=== PATIENT | female | born 1955 | race African-American/Black ===

== ENCOUNTER 2020-04-11 13:39 | Inpatient (IN) ==
[2020-04-11] MEDS ORDERED: SODIUM CHLORIDE 0.9% 500 ML IV STA (15:19)
[2020-04-11] MEDS ORDERED: cefTRIAXone 1,000 MG in SODIUM CHLORIDE 0.9% 100 ML IV STA (15:19)
[2020-04-11 16:32] LABS: Alanine Aminotransferase 33 U/L (13-56); Albumin 2.5 G/DL (3.4-5.0); Alkaline Phosphatase 54 U/L (45-117); Aspartate Amino Transferase 102 U/L (0-37); Bilirubin,Total < 0.39 MG/DL (0.2-1.0); Blood Urea Nitrogen 62 MG/DL (7-18); Calcium 7.5 MG/DL (8.5-10.1); Estimated Glom Filtration Rate 3 ML/MIN; Ferritin 9669.4 ng/ml (8-252); Glucose 298 MG/DL (74-106); Osmolality,Calculated 296.2 MOS/KG (273-304); Total Protein 7.8 G/DL (6.4-8.3)
[2020-04-11 16:36] LABS: Basophils % 0.2 % (0.0-0.8); Hematocrit 32.8 VOL% (35.7-47.0); Hemoglobin 9.4 GM/DL (12.0-16.0); Immature Granulocytes % 0.6 %; Immature Granulocytes Absolute 0.05 #; Lymphocytes # 1.1 10*3/uL (1.4-4.0); Lymphocytes % 13.4 % (21.3-54.2); Mean Corpuscular HGB Conc 28.7 GM/DL (32-36); Mean Corpuscular Volume 75.6 FL (87-102); Monocytes % 6.7 % (1.7-12.7); NRBC # 0.02 10*3/uL; Neutrophils % 79.1 % (38.7-73.9); Platelet Count 113 T/CUMM (130-400); Red Blood Count 4.34 MC/CUMM (3.8-5.5); Red Cell Distribution Width 22.4 % (9.3-17.3); White Blood Count 8.4 T/CUMM (4-12)
[2020-04-11 16:53] LABS: Hypochromasia 1+; Microcytosis 1+; Platelet Estimate Adequate
[2020-04-11] MEDS ORDERED: ONDANSETRON 4 MG/2 ML VIAL IV PRN (17:13)
[2020-04-11] MEDS ORDERED: GLUCAGON 1 MG VIAL IM PRN (17:13)
[2020-04-11] MEDS ORDERED: NON-FORMULARY MEDICATION (Sucroferric Oxyhydroxide [Velphoro] 500 MG) PO SCH (21:00)
[2020-04-11] MEDS: INSULIN LISPRO 100 UNIT/ML SUBCUT SCH (21:15)
[2020-04-11] MEDS: ATORVASTATIN 10 MG TABLET PO SCH (21:16)
[2020-04-11] MEDS: MIRTAZAPINE 15 MG TABLET PO SCH (21:16)
[2020-04-11] MEDS: levETIRAcetam 500 MG TABLET PO SCH (21:16)
[2020-04-12] MEDS: cloNIDine 0.1 MG TABLET PO SCH ×3 (00:37→21:18)
[2020-04-12] MEDS: ACETAMINOPHEN 325 MG TABLET PO PRN ×3 (00:38→21:40)
[2020-04-12 05:53] LABS: Basophils % 0.4 % (0.0-0.8); Hematocrit 31.3 VOL% (35.7-47.0); Hemoglobin 9.2 GM/DL (12.0-16.0); Immature Granulocytes % 0.4 %; Immature Granulocytes Absolute 0.03 #; Lymphocytes # 1.1 10*3/uL (1.4-4.0); Lymphocytes % 15.9 % (21.3-54.2); Mean Corpuscular HGB Conc 29.4 GM/DL (32-36); Mean Corpuscular Volume 73.6 FL (87-102); Monocytes % 8.9 % (1.7-12.7); NRBC # 0.02 10*3/uL; Neutrophils % 74.4 % (38.7-73.9); Platelet Count 97 T/CUMM (130-400); Red Blood Count 4.25 MC/CUMM (3.8-5.5); Red Cell Distribution Width 22.3 % (9.3-17.3)
[2020-04-12 06:30] LABS: Calcium 7.2 MG/DL (8.5-10.1); Ferritin 7993.7 ng/ml (8-252); Osmolality,Calculated 288.2 MOS/KG (273-304)
[2020-04-12 06:34] LABS: Band Neutrophils 3 % (0-10); Lymphocytes 12 % (20-55); Myelocytes 1 %; Nucleated Red Blood Cells 3 (0-5); Platelet Estimate Decreased; Segmented Neutrophils 81 % (50-85); Total Cells Counted 100
[2020-04-12 06:35] LABS: Hypochromasia 2+; Ovalocytes Slight
[2020-04-12] MEDS: FLUoxetine 10 MG CAPSULE PO SCH (09:02)
[2020-04-12] MEDS: CYANOCOBALAMIN 500 MCG TABLET PO SCH (09:02)
[2020-04-12] MEDS: ASPIRIN EC 81 MG TABLET PO SCH (09:02)
[2020-04-12] MEDS: MULTIVITAMIN (CENTRUM) TABLET PO SCH (09:02)
[2020-04-12] MEDS: levETIRAcetam 500 MG TABLET PO SCH ×2 (09:02→21:18)
[2020-04-12] MEDS: ISOSORBIDE MONONITRATE 60 MG TABLET PO SCH (09:02)
[2020-04-12] MEDS: metOLazone 5 MG TABLET PO SCH (09:02)
[2020-04-12] MEDS: PANTOPRAZOLE 40 MG TABLET PO SCH (09:02)
[2020-04-12] MEDS: INSULIN LISPRO 100 UNIT/ML SUBCUT SCH ×4 (09:04→21:19)
[2020-04-12] MEDS: HEPARIN 5,000 UNIT/1 ML VIAL SUBCUT SCH ×2 (09:05→17:52)
[2020-04-12] MEDS: NICOTINE 21 MG/24 HR PATCH TRANSDERM SCH (09:06)
[2020-04-12] MEDS ORDERED: VANCOMYCIN INJ 1,000 MG in SODIUM CHLORIDE 0.9% 250 ML IV ONE (15:08)
[2020-04-12] MEDS: amLODIPine 10 MG TABLET PO SCH ×2 (17:51→18:40)
[2020-04-12] MEDS: ATORVASTATIN 10 MG TABLET PO SCH (21:19)
[2020-04-12] MEDS: MIRTAZAPINE 15 MG TABLET PO SCH (21:19)
[2020-04-12] MEDS: ACETAMINOPHEN 650 MG SUPP RECTAL PRN (22:45)
[2020-04-13] MEDS: HEPARIN 5,000 UNIT/1 ML VIAL SUBCUT SCH ×3 (01:02→16:29)
[2020-04-13 06:48] LABS: Basophils % 0.2 % (0.0-0.8); Hematocrit 34.1 VOL% (35.7-47.0); Hemoglobin 9.6 GM/DL (12.0-16.0); Immature Granulocytes % 0.5 %; Immature Granulocytes Absolute 0.05 #; Lymphocytes # 0.6 10*3/uL (1.4-4.0); Lymphocytes % 5.6 % (21.3-54.2); Mean Corpuscular HGB Conc 28.2 GM/DL (32-36); Mean Corpuscular Volume 74.8 FL (87-102); Monocytes % 10.9 % (1.7-12.7); NRBC # 0.02 10*3/uL; Neutrophils % 82.8 % (38.7-73.9); Platelet Count 126 T/CUMM (130-400); Red Blood Count 4.56 MC/CUMM (3.8-5.5); Red Cell Distribution Width 22.8 % (9.3-17.3); White Blood Count 9.8 T/CUMM (4-12)
[2020-04-13 06:52] LABS: Ferritin 13342.3 ng/ml (8-252); Osmolality,Calculated 290.5 MOS/KG (273-304)
[2020-04-13] MEDS: INSULIN LISPRO 100 UNIT/ML SUBCUT SCH ×4 (08:52→21:53)
[2020-04-13] MEDS: MULTIVITAMIN (CENTRUM) TABLET PO SCH ×2 (08:52→09:17)
[2020-04-13] MEDS: ASPIRIN EC 81 MG TABLET PO SCH ×2 (08:53→09:17)
[2020-04-13] MEDS: metOLazone 5 MG TABLET PO SCH ×2 (08:53→09:18)
[2020-04-13] MEDS: PANTOPRAZOLE 40 MG TABLET PO SCH ×2 (08:53→09:18)
[2020-04-13] MEDS: FLUoxetine 10 MG CAPSULE PO SCH ×2 (08:53→09:18)
[2020-04-13] MEDS: cloNIDine 0.1 MG TABLET PO SCH ×3 (08:53→21:51)
[2020-04-13] MEDS: CYANOCOBALAMIN 500 MCG TABLET PO SCH ×2 (08:53→09:18)
[2020-04-13] MEDS: levETIRAcetam 500 MG TABLET PO SCH ×3 (08:53→21:51)
[2020-04-13] MEDS: NICOTINE 21 MG/24 HR PATCH TRANSDERM SCH (08:53)
[2020-04-13] MEDS: ISOSORBIDE MONONITRATE 60 MG TABLET PO SCH ×2 (08:53→09:17)
[2020-04-13 09:53] LABS: Anisocytosis 2+; Hypochromasia 3+; Ovalocytes Few; Platelet Estimate Adequate; Poikilocytosis 1+; Schistocytes Slight
[2020-04-13 09:54] LABS: Target Cells Few
[2020-04-13] MEDS: amLODIPine 10 MG TABLET PO SCH (16:03)
[2020-04-13] MEDS: MIRTAZAPINE 15 MG TABLET PO SCH (21:51)
[2020-04-13] MEDS: ATORVASTATIN 10 MG TABLET PO SCH (21:51)
[2020-04-13] MEDS: DEXTROSE 10% 250 ML BAG IV PRN (22:22)
[2020-04-14] MEDS: HEPARIN 5,000 UNIT/1 ML VIAL SUBCUT SCH ×3 (03:31→16:35)
[2020-04-14 06:42] LABS: Basophils % 0.2 % (0.0-0.8); Hematocrit 35.1 VOL% (35.7-47.0); Immature Granulocytes % 0.6 %; Immature Granulocytes Absolute 0.06 #; Lymphocytes # 0.7 10*3/uL (1.4-4.0); Lymphocytes % 6.5 % (21.3-54.2); Mean Corpuscular HGB Conc 28.5 GM/DL (32-36); Mean Corpuscular Volume 73.4 FL (87-102); Monocytes % 10.2 % (1.7-12.7); NRBC # 0.04 10*3/uL; Neutrophils % 82.5 % (38.7-73.9); Platelet Count 185 T/CUMM (130-400); Red Blood Count 4.78 MC/CUMM (3.8-5.5); Red Cell Distribution Width 23.1 % (9.3-17.3); White Blood Count 10.1 T/CUMM (4-12)
[2020-04-14 06:48] LABS: Calcium 8.2 MG/DL (8.5-10.1); Osmolality,Calculated 291.5 MOS/KG (273-304)
[2020-04-14 06:55] LABS: Ferritin 10698.8 ng/ml (8-252)
[2020-04-14] MEDS: ACETAMINOPHEN 650 MG SUPP RECTAL PRN (08:23)
[2020-04-14] MEDS: NICOTINE 21 MG/24 HR PATCH TRANSDERM SCH (08:23)
[2020-04-14] MEDS: INSULIN LISPRO 100 UNIT/ML SUBCUT SCH ×4 (08:24→23:15)
[2020-04-14] MEDS: cloNIDine 0.1 MG TABLET PO SCH ×2 (08:24→21:48)
[2020-04-14] MEDS: ISOSORBIDE MONONITRATE 60 MG TABLET PO SCH (08:24)
[2020-04-14] MEDS: ASPIRIN EC 81 MG TABLET PO SCH (08:24)
[2020-04-14] MEDS: MULTIVITAMIN (CENTRUM) TABLET PO SCH (08:24)
[2020-04-14] MEDS: CYANOCOBALAMIN 500 MCG TABLET PO SCH (08:25)
[2020-04-14] MEDS: PANTOPRAZOLE 40 MG TABLET PO SCH (08:25)
[2020-04-14] MEDS: metOLazone 5 MG TABLET PO SCH (08:25)
[2020-04-14] MEDS: levETIRAcetam 500 MG TABLET PO SCH (08:25)
[2020-04-14] MEDS: FLUoxetine 10 MG CAPSULE PO SCH (08:25)
[2020-04-14 12:45] LABS: Anisocytosis 2+; Hypochromasia 2+; Microcytosis 2+
[2020-04-14 12:46] LABS: Ovalocytes Few; Schistocytes 1+
[2020-04-14 12:48] LABS: Platelet Estimate Adequate
[2020-04-14] MEDS: amLODIPine 10 MG TABLET PO SCH (16:16)
[2020-04-14] MEDS: ATORVASTATIN 10 MG TABLET PO SCH (21:47)
[2020-04-14] MEDS: MIRTAZAPINE 15 MG TABLET PO SCH (21:47)
[2020-04-15] MEDS: HEPARIN 5,000 UNIT/1 ML VIAL SUBCUT SCH ×3 (02:08→17:25)
[2020-04-15] MEDS: ACETAMINOPHEN 650 MG SUPP RECTAL PRN (03:40)
[2020-04-15 09:28] LABS: Basophils % 0.2 % (0.0-0.8); Hematocrit 31.4 VOL% (35.7-47.0); Hemoglobin 9.3 GM/DL (12.0-16.0); Lymphocytes % 9.3 % (21.3-54.2); Mean Corpuscular HGB Conc 29.6 GM/DL (32-36); Mean Corpuscular Volume 71.9 FL (87-102); Monocytes % 8.7 % (1.7-12.7); NRBC # 0.07 10*3/uL; Neutrophils % 80.8 % (38.7-73.9); Platelet Count 225 T/CUMM (130-400); Red Blood Count 4.37 MC/CUMM (3.8-5.5); Red Cell Distribution Width 23.5 % (9.3-17.3); White Blood Count 10.5 T/CUMM (4-12)
[2020-04-15] MEDS: INSULIN LISPRO 100 UNIT/ML SUBCUT SCH ×4 (09:32→21:49)
[2020-04-15 09:47] LABS: Calcium 8.3 MG/DL (8.5-10.1); Osmolality,Calculated 305.4 MOS/KG (273-304)
[2020-04-15] MEDS: ASPIRIN EC 81 MG TABLET PO SCH (09:51)
[2020-04-15] MEDS: MULTIVITAMIN (CENTRUM) TABLET PO SCH (09:51)
[2020-04-15] MEDS: cloNIDine 0.1 MG TABLET PO SCH ×2 (09:51→21:48)
[2020-04-15] MEDS: ISOSORBIDE MONONITRATE 60 MG TABLET PO SCH (09:52)
[2020-04-15] MEDS: FLUoxetine 10 MG CAPSULE PO SCH (09:52)
[2020-04-15] MEDS: PANTOPRAZOLE 40 MG TABLET PO SCH (09:52)
[2020-04-15] MEDS: metOLazone 5 MG TABLET PO SCH (09:53)
[2020-04-15] MEDS: CYANOCOBALAMIN 500 MCG TABLET PO SCH (09:53)
[2020-04-15 09:59] LABS: Band Neutrophils 1 % (0-10); Eosinophils 1 % (0-10); Hypochromasia 1+; Lymphocytes 8 % (20-55); Microcytosis 2+; Nucleated Red Blood Cells 3 (0-5); Segmented Neutrophils 82 % (50-85); Total Cells Counted 100
[2020-04-15 10:00] LABS: Acanthocytes Few; Ovalocytes Slight; Platelet Estimate Normal; Polychromasia Slight; Target Cells Slight
[2020-04-15] MEDS: NICOTINE 21 MG/24 HR PATCH TRANSDERM SCH (10:57)
[2020-04-15] MEDS ORDERED: SODIUM CHLORIDE 0.9% 1,000 ML IV ONE (15:19)
[2020-04-15 15:57] LABS: Osmolality,Calculated 296.5 MOS/KG (273-304)
[2020-04-15 16:38] LABS: ABG Base Excess -7.4 MMOL/L (-2.5-2.5); ABG HCO3 18.4 MMOL/L (20-26); ABG Oxygen Saturation 99.6 % (95-100); ABG PCO2 33.8 MM HG (35-48); ABG PH 7.329 (7.35-7.45); ABG TCO2 16.5 MMOL/L (23-27); Pt O2 Delivery Device Other
[2020-04-15] MEDS: amLODIPine 10 MG TABLET PO SCH (17:25)
[2020-04-15] MEDS ORDERED: PHENYTOIN INJ 1,000 MG in SODIUM CHLORIDE 0.9% 100 ML IV ONE (18:00)
[2020-04-15] MEDS: PHENYTOIN 100 MG/2 ML VIAL IV SCH (21:48)
[2020-04-15] MEDS: MIRTAZAPINE 15 MG TABLET PO SCH (21:50)
[2020-04-15] MEDS: ATORVASTATIN 10 MG TABLET PO SCH (21:50)
[2020-04-16] MEDS: HEPARIN 5,000 UNIT/1 ML VIAL SUBCUT SCH ×2 (00:27→08:33)
[2020-04-16] MEDS: PHENYTOIN 100 MG/2 ML VIAL IV SCH ×3 (06:48→21:21)
[2020-04-16] MEDS: NICOTINE 21 MG/24 HR PATCH TRANSDERM SCH (08:33)
[2020-04-16] MEDS: INSULIN LISPRO 100 UNIT/ML SUBCUT SCH ×3 (08:33→18:44)
[2020-04-16 09:14] LABS: Basophils % 0.2 % (0.0-0.8); Eosinophils # 0.1 10*3/uL (0.0-0.87); Eosinophils % 0.3 % (0.00-10.9); Hematocrit 28.4 VOL% (35.7-47.0); Hemoglobin 8.4 GM/DL (12.0-16.0); Immature Granulocytes % 2.7 %; Immature Granulocytes Absolute 0.48 #; Lymphocytes % 5.7 % (21.3-54.2); Mean Corpuscular HGB Conc 29.6 GM/DL (32-36); Mean Corpuscular Volume 71.5 FL (87-102); Monocytes % 7.3 % (1.7-12.7); NRBC # 0.12 10*3/uL; Neutrophils % 83.8 % (38.7-73.9); Platelet Count 255 T/CUMM (130-400); Red Blood Count 3.97 MC/CUMM (3.8-5.5); Red Cell Distribution Width 23.2 % (9.3-17.3); White Blood Count 17.8 T/CUMM (4-12)
[2020-04-16 09:40] LABS: Hypochromasia 1+
[2020-04-16 09:41] LABS: Anisocytosis 1+; Microcytosis 1+; Target Cells Few
[2020-04-16 09:42] LABS: Ovalocytes Slight; Platelet Estimate Normal; Polychromasia Slight; Tear Drop Cells Slight
[2020-04-16 09:48] LABS: Calcium 7.9 MG/DL (8.5-10.1); Osmolality,Calculated 308.1 MOS/KG (273-304)
[2020-04-16] MEDS: ISOSORBIDE MONONITRATE 60 MG TABLET PO SCH (10:15)
[2020-04-16] MEDS: ASPIRIN EC 81 MG TABLET PO SCH (10:15)
[2020-04-16] MEDS: cloNIDine 0.1 MG TABLET PO SCH ×2 (10:16→21:21)
[2020-04-16] MEDS: FLUoxetine 10 MG CAPSULE PO SCH (10:16)
[2020-04-16] MEDS: metOLazone 5 MG TABLET PO SCH (10:16)
[2020-04-16] MEDS: PANTOPRAZOLE 40 MG TABLET PO SCH (10:17)
[2020-04-16] MEDS: MULTIVITAMIN (CENTRUM) TABLET PO SCH (10:19)
[2020-04-16] MEDS: CYANOCOBALAMIN 500 MCG TABLET PO SCH (10:19)
[2020-04-16] MEDS ORDERED: ENOXAPARIN 100 MG/ML SYRINGE SUBCUT SCH (14:00)
[2020-04-16] MEDS: HEPARIN DRIP 25,000 UNITS/500 ML PREMIX IV SCH (17:32)
[2020-04-16] MEDS: amLODIPine 10 MG TABLET PO SCH (18:44)
[2020-04-16] MEDS: INSULIN GLARGINE 100 UNIT/ML SUBCUT SCH (21:20)
[2020-04-16] MEDS: MIRTAZAPINE 15 MG TABLET PO SCH (21:21)
[2020-04-16] MEDS: ATORVASTATIN 10 MG TABLET PO SCH (21:21)
[2020-04-17] MEDS: INSULIN LISPRO 100 UNIT/ML SUBCUT SCH ×4 (00:59→17:49)
[2020-04-17 04:10] LABS: ABG Base Excess -7.2 MMOL/L (-2.5-2.5); ABG HCO3 17.8 MMOL/L (20-26); ABG Oxygen Saturation 91.7 % (95-100); ABG PCO2 33.4 MM HG (35-48); ABG PH 7.344 (7.35-7.45); ABG PO2 74.5 MM HG (80-95); ABG TCO2 18.8 MMOL/L (23-27); Allen Test Positive
[2020-04-17] MEDS: PHENYTOIN 100 MG/2 ML VIAL IV SCH ×3 (05:00→21:30)
[2020-04-17 05:16] LABS: Basophils % 0.2 % (0.0-0.8); Eosinophils % 0.1 % (0.00-10.9); Hematocrit 25.4 VOL% (35.7-47.0); Hemoglobin 7.5 GM/DL (12.0-16.0); Immature Granulocytes % 4.4 %; Immature Granulocytes Absolute 0.78 #; Lymphocytes # 1.3 10*3/uL (1.4-4.0); Lymphocytes % 7.6 % (21.3-54.2); Mean Corpuscular HGB Conc 29.5 GM/DL (32-36); Mean Corpuscular Volume 72.4 FL (87-102); Monocytes % 6.9 % (1.7-12.7); NRBC # 0.27 10*3/uL; Neutrophils % 80.8 % (38.7-73.9); Platelet Count 287 T/CUMM (130-400); Red Blood Count 3.51 MC/CUMM (3.8-5.5); Red Cell Distribution Width 23.2 % (9.3-17.3); White Blood Count 17.6 T/CUMM (4-12)
[2020-04-17 05:38] LABS: Band Neutrophils 1 % (0-10); Eosinophils 1 % (0-10); Hypochromasia 2+; Lymphocytes 7 % (20-55); Nucleated Red Blood Cells 2 (0-5); Ovalocytes Slight; Platelet Estimate Adequate; Segmented Neutrophils 85 % (50-85); Total Cells Counted 100
[2020-04-17 05:39] LABS: Burr Cells Slight; Microcytosis 1+
[2020-04-17 05:49] LABS: Calcium 7.5 MG/DL (8.5-10.1)
[2020-04-17] MEDS: MULTIVITAMIN (CENTRUM) TABLET PO SCH (08:35)
[2020-04-17] MEDS: CYANOCOBALAMIN 500 MCG TABLET PO SCH (08:35)
[2020-04-17] MEDS: ISOSORBIDE MONONITRATE 60 MG TABLET PO SCH (08:35)
[2020-04-17] MEDS: metOLazone 5 MG TABLET PO SCH (08:35)
[2020-04-17] MEDS: FLUoxetine 10 MG CAPSULE PO SCH (08:35)
[2020-04-17] MEDS: ASPIRIN EC 81 MG TABLET PO SCH (08:35)
[2020-04-17] MEDS: cloNIDine 0.1 MG TABLET PO SCH ×2 (08:56→21:30)
[2020-04-17] MEDS: NICOTINE 21 MG/24 HR PATCH TRANSDERM SCH (08:56)
[2020-04-17] MEDS: PANTOPRAZOLE 40 MG VIAL IV SCH (09:15)
[2020-04-17] MEDS ORDERED: AZITHROMYCIN 250 MG TABLET PER TUBE ONE (11:30)
[2020-04-17] MEDS: cefTRIAXone 1,000 MG in SYRINGE 1 EACH IV SCH (11:47)
[2020-04-17] MEDS: MIRTAZAPINE 15 MG TABLET PO SCH (21:30)
[2020-04-17] MEDS: ATORVASTATIN 10 MG TABLET PO SCH (21:30)
[2020-04-17] MEDS: INSULIN GLARGINE 100 UNIT/ML SUBCUT SCH (23:27)
[2020-04-17] MEDS: HEPARIN DRIP 25,000 UNITS/500 ML PREMIX IV SCH (23:34)
[2020-04-18] MEDS: INSULIN LISPRO 100 UNIT/ML SUBCUT SCH ×4 (00:30→17:09)
[2020-04-18] MEDS: ACETAMINOPHEN 325 MG TABLET PO PRN (03:40)
[2020-04-18] MEDS: PHENYTOIN 100 MG/2 ML VIAL IV SCH ×3 (03:40→20:37)
[2020-04-18 05:49] LABS: Calcium 7.5 MG/DL (8.5-10.1); Osmolality,Calculated 298.1 MOS/KG (273-304)
[2020-04-18] MEDS ORDERED: HEPARIN 5,000 UNIT/1 ML VIAL IV ONE (06:05)
[2020-04-18] MEDS: AZITHROMYCIN 250 MG TABLET PER TUBE SCH (09:28)
[2020-04-18] MEDS: ISOSORBIDE MONONITRATE 60 MG TABLET PO SCH (09:28)
[2020-04-18] MEDS: FLUoxetine 10 MG CAPSULE PO SCH (09:28)
[2020-04-18] MEDS: CYANOCOBALAMIN 500 MCG TABLET PO SCH (09:28)
[2020-04-18] MEDS: cloNIDine 0.1 MG TABLET PO SCH ×2 (09:29→20:41)
[2020-04-18] MEDS: metOLazone 5 MG TABLET PO SCH (09:29)
[2020-04-18] MEDS: ASPIRIN EC 81 MG TABLET PO SCH (09:29)
[2020-04-18] MEDS: NICOTINE 21 MG/24 HR PATCH TRANSDERM SCH (09:29)
[2020-04-18] MEDS: PANTOPRAZOLE 40 MG VIAL IV SCH (09:29)
[2020-04-18] MEDS: cefTRIAXone 1,000 MG in SYRINGE 1 EACH IV SCH (11:19)
[2020-04-18] MEDS: MULTIVITAMIN (CENTRUM) TABLET PO SCH (12:36)
[2020-04-18] MEDS: ATORVASTATIN 10 MG TABLET PO SCH (20:41)
[2020-04-18] MEDS: MIRTAZAPINE 15 MG TABLET PO SCH (20:41)
[2020-04-18] MEDS: INSULIN GLARGINE 100 UNIT/ML SUBCUT SCH (21:29)
[2020-04-19] MEDS: INSULIN LISPRO 100 UNIT/ML SUBCUT SCH ×4 (00:53→18:08)
[2020-04-19 02:09] LABS: Basophils # 0.1 10*3/uL (0.0-0.2); Basophils % 0.4 % (0.0-0.8); Eosinophils # 0.1 10*3/uL (0.0-0.87); Eosinophils % 0.5 % (0.00-10.9); Hematocrit 23.6 VOL% (35.7-47.0); Hemoglobin 6.8 GM/DL (12.0-16.0); Immature Granulocytes % 6.3 %; Immature Granulocytes Absolute 0.82 #; Lymphocytes # 1.2 10*3/uL (1.4-4.0); Mean Corpuscular HGB Conc 28.8 GM/DL (32-36); Mean Corpuscular Volume 73.8 FL (87-102); Mean Platelet Volume 10.4 FL (9.6-12.0); Monocytes % 8.6 % (1.7-12.7); NRBC # 0.29 10*3/uL; Neutrophils % 75.2 % (38.7-73.9); Platelet Count 315 T/CUMM (130-400); Red Cell Distribution Width 23.5 % (9.3-17.3); White Blood Count 12.9 T/CUMM (4-12)
[2020-04-19 02:25] LABS: Calcium 7.6 MG/DL (8.5-10.1); Osmolality,Calculated 297.5 MOS/KG (273-304)
[2020-04-19 04:25] LABS: Hypochromasia 2+; Lymphocytes 9 % (20-55); Platelet Estimate Adequate; Polychromasia Slight; Segmented Neutrophils 86 % (50-85); Total Cells Counted 100
[2020-04-19 04:26] LABS: Macrocytosis Slight
[2020-04-19] MEDS: PHENYTOIN 100 MG/2 ML VIAL IV SCH ×3 (05:39→21:02)
[2020-04-19] MEDS: HEPARIN DRIP 25,000 UNITS/500 ML PREMIX IV SCH (06:57)
[2020-04-19] MEDS: AZITHROMYCIN 250 MG TABLET PER TUBE SCH (08:41)
[2020-04-19] MEDS: CYANOCOBALAMIN 500 MCG TABLET PO SCH (08:41)
[2020-04-19] MEDS: FLUoxetine 10 MG CAPSULE PO SCH (08:41)
[2020-04-19] MEDS: ASPIRIN EC 81 MG TABLET PO SCH (08:41)
[2020-04-19] MEDS: metOLazone 5 MG TABLET PO SCH (08:41)
[2020-04-19] MEDS: NICOTINE 21 MG/24 HR PATCH TRANSDERM SCH (08:42)
[2020-04-19] MEDS: cefTRIAXone 1,000 MG in SYRINGE 1 EACH IV SCH (08:42)
[2020-04-19] MEDS: cloNIDine 0.1 MG TABLET PO SCH ×2 (08:42→21:03)
[2020-04-19] MEDS: PANTOPRAZOLE 40 MG VIAL IV SCH (08:42)
[2020-04-19] MEDS: ISOSORBIDE MONONITRATE 60 MG TABLET PO SCH (08:42)
[2020-04-19] MEDS ORDERED: SODIUM CHLORIDE 0.9% 1,000 ML IV PRN ×2 (13:48→14:19)
[2020-04-19] MEDS: HEPARIN 5,000 UNIT/1 ML VIAL SUBCUT SCH (16:39)
[2020-04-19] MEDS: ACETAMINOPHEN 325 MG TABLET PO PRN (20:59)
[2020-04-19] MEDS: INSULIN GLARGINE 100 UNIT/ML SUBCUT SCH (21:02)
[2020-04-19] MEDS: MIRTAZAPINE 15 MG TABLET PO SCH (21:02)
[2020-04-19] MEDS: ATORVASTATIN 10 MG TABLET PO SCH (21:02)
[2020-04-20] MEDS: INSULIN LISPRO 100 UNIT/ML SUBCUT SCH ×4 (01:09→18:26)
[2020-04-20] MEDS: HEPARIN 5,000 UNIT/1 ML VIAL SUBCUT SCH ×3 (01:11→16:10)
[2020-04-20] MEDS: PHENYTOIN 100 MG/2 ML VIAL IV SCH ×3 (05:11→21:10)
[2020-04-20 06:08] LABS: Basophils # 0.1 10*3/uL (0.0-0.2); Basophils % 0.5 % (0.0-0.8); Eosinophils # 0.1 10*3/uL (0.0-0.87); Eosinophils % 0.8 % (0.00-10.9); Hematocrit 29.5 VOL% (35.7-47.0); Hemoglobin 8.6 GM/DL (12.0-16.0); Immature Granulocytes % 6.4 %; Immature Granulocytes Absolute 0.86 #; Mean Corpuscular HGB Conc 29.2 GM/DL (32-36); Mean Corpuscular Volume 77.4 FL (87-102); Mean Platelet Volume 10.4 FL (9.6-12.0); Monocytes % 11.3 % (1.7-12.7); NRBC # 0.12 10*3/uL; Platelet Count 279 T/CUMM (130-400); Red Blood Count 3.81 MC/CUMM (3.8-5.5); Red Cell Distribution Width 24.5 % (9.3-17.3); White Blood Count 13.5 T/CUMM (4-12)
[2020-04-20 07:50] LABS: Lymphocytes 7 % (20-55); Myelocytes 1 %; Nucleated Red Blood Cells 2 (0-5); Total Cells Counted 100
[2020-04-20 07:51] LABS: Acanthocytes Few; Anisocytosis 2+; Band Neutrophils 3 % (0-10); Eosinophils 1 % (0-10); Hypochromasia 2+; Macrocytosis 2+; Metamyelocytes 3 %; Ovalocytes 1+; Platelet Estimate Normal; Segmented Neutrophils 78 % (50-85); Target Cells 2+
[2020-04-20] MEDS: NICOTINE 21 MG/24 HR PATCH TRANSDERM SCH (08:22)
[2020-04-20] MEDS: CYANOCOBALAMIN 500 MCG TABLET PO SCH (08:22)
[2020-04-20] MEDS: metOLazone 5 MG TABLET PO SCH (08:23)
[2020-04-20] MEDS: FLUoxetine 10 MG CAPSULE PO SCH (08:23)
[2020-04-20] MEDS: cefTRIAXone 1,000 MG in SYRINGE 1 EACH IV SCH (08:23)
[2020-04-20] MEDS: cloNIDine 0.1 MG TABLET PO SCH ×2 (08:23→21:14)
[2020-04-20] MEDS: ISOSORBIDE MONONITRATE 60 MG TABLET PO SCH (08:23)
[2020-04-20] MEDS: ASPIRIN EC 81 MG TABLET PO SCH (08:23)
[2020-04-20] MEDS: PANTOPRAZOLE 40 MG VIAL IV SCH (08:26)
[2020-04-20] MEDS: AZITHROMYCIN 250 MG TABLET PER TUBE SCH (08:27)
[2020-04-20] MEDS: ATORVASTATIN 10 MG TABLET PO SCH (21:14)
[2020-04-20] MEDS: MIRTAZAPINE 15 MG TABLET PO SCH (21:15)
[2020-04-20] MEDS: INSULIN GLARGINE 100 UNIT/ML SUBCUT SCH (21:16)
[2020-04-21] MEDS: INSULIN LISPRO 100 UNIT/ML SUBCUT SCH ×4 (01:12→18:27)
[2020-04-21] MEDS: HEPARIN 5,000 UNIT/1 ML VIAL SUBCUT SCH ×3 (01:13→16:56)
[2020-04-21] MEDS: PHENYTOIN 100 MG/2 ML VIAL IV SCH ×4 (04:49→21:46)
[2020-04-21] MEDS: PANTOPRAZOLE 40 MG VIAL IV SCH (08:35)
[2020-04-21] MEDS: cefTRIAXone 1,000 MG in SYRINGE 1 EACH IV SCH (08:35)
[2020-04-21] MEDS: FLUoxetine 10 MG CAPSULE PO SCH (08:36)
[2020-04-21] MEDS: cloNIDine 0.1 MG TABLET PO SCH ×2 (08:36→21:46)
[2020-04-21] MEDS: CYANOCOBALAMIN 500 MCG TABLET PO SCH (08:36)
[2020-04-21] MEDS: metOLazone 5 MG TABLET PO SCH (08:36)
[2020-04-21] MEDS: ISOSORBIDE MONONITRATE 60 MG TABLET PO SCH (08:36)
[2020-04-21] MEDS: AZITHROMYCIN 250 MG TABLET PER TUBE SCH (08:37)
[2020-04-21] MEDS: NICOTINE 21 MG/24 HR PATCH TRANSDERM SCH (08:37)
[2020-04-21] MEDS: ASPIRIN EC 81 MG TABLET PO SCH (08:37)
[2020-04-21] MEDS: ATORVASTATIN 10 MG TABLET PO SCH (21:46)
[2020-04-21] MEDS: MIRTAZAPINE 15 MG TABLET PO SCH (21:56)
[2020-04-21] MEDS: INSULIN GLARGINE 100 UNIT/ML SUBCUT SCH (22:00)
[2020-04-22] MEDS: HEPARIN 5,000 UNIT/1 ML VIAL SUBCUT SCH ×3 (01:03→16:52)
[2020-04-22] MEDS: INSULIN LISPRO 100 UNIT/ML SUBCUT SCH ×5 (01:03→18:42)
[2020-04-22] MEDS: PHENYTOIN 100 MG/2 ML VIAL IV SCH ×3 (06:00→21:48)
[2020-04-22 07:44] LABS: Calcium 8.2 MG/DL (8.5-10.1); Osmolality,Calculated 303.7 MOS/KG (273-304); Prealbumin 11.5 MG/DL (20-40)
[2020-04-22] MEDS: cefTRIAXone 1,000 MG in SYRINGE 1 EACH IV SCH (09:14)
[2020-04-22] MEDS: ISOSORBIDE MONONITRATE 60 MG TABLET PO SCH (09:17)
[2020-04-22] MEDS: ASPIRIN EC 81 MG TABLET PO SCH (09:17)
[2020-04-22] MEDS: cloNIDine 0.1 MG TABLET PO SCH ×2 (09:17→21:45)
[2020-04-22] MEDS: CYANOCOBALAMIN 500 MCG TABLET PO SCH (09:17)
[2020-04-22] MEDS: FLUoxetine 10 MG CAPSULE PO SCH (09:17)
[2020-04-22] MEDS: PANTOPRAZOLE 40 MG VIAL IV SCH (09:17)
[2020-04-22] MEDS: metOLazone 5 MG TABLET PO SCH (09:17)
[2020-04-22] MEDS: NICOTINE 21 MG/24 HR PATCH TRANSDERM SCH (09:18)
[2020-04-22] MEDS: ATORVASTATIN 10 MG TABLET PO SCH (21:45)
[2020-04-22] MEDS: MIRTAZAPINE 15 MG TABLET PO SCH (21:45)
[2020-04-22] MEDS: INSULIN GLARGINE 100 UNIT/ML SUBCUT SCH (21:47)
[2020-04-23] MEDS: ACETAMINOPHEN 325 MG TABLET PO PRN (00:07)
[2020-04-23] MEDS: HEPARIN 5,000 UNIT/1 ML VIAL SUBCUT SCH ×3 (01:00→17:21)
[2020-04-23] MEDS: INSULIN LISPRO 100 UNIT/ML SUBCUT SCH ×4 (01:00→17:21)
[2020-04-23] MEDS: PHENYTOIN 100 MG/2 ML VIAL IV SCH ×3 (05:48→22:00)
[2020-04-23] MEDS: PANTOPRAZOLE 40 MG VIAL IV SCH (08:49)
[2020-04-23] MEDS: cloNIDine 0.1 MG TABLET PO SCH ×2 (08:50→21:58)
[2020-04-23] MEDS: FLUoxetine 10 MG CAPSULE PO SCH (08:50)
[2020-04-23] MEDS: ISOSORBIDE MONONITRATE 60 MG TABLET PO SCH (08:50)
[2020-04-23] MEDS: cefTRIAXone 1,000 MG in SYRINGE 1 EACH IV SCH (08:50)
[2020-04-23] MEDS: ASPIRIN EC 81 MG TABLET PO SCH (08:51)
[2020-04-23] MEDS: CYANOCOBALAMIN 500 MCG TABLET PO SCH (08:51)
[2020-04-23] MEDS: metOLazone 5 MG TABLET PO SCH (08:51)
[2020-04-23] MEDS: NICOTINE 21 MG/24 HR PATCH TRANSDERM SCH (08:51)
[2020-04-23] MEDS: ATORVASTATIN 10 MG TABLET PO SCH (21:58)
[2020-04-23] MEDS: MIRTAZAPINE 15 MG TABLET PO SCH (21:58)
[2020-04-23] MEDS: INSULIN GLARGINE 100 UNIT/ML SUBCUT SCH (21:59)
[2020-04-24] MEDS: INSULIN LISPRO 100 UNIT/ML SUBCUT SCH ×4 (01:26→17:12)
[2020-04-24] MEDS: HEPARIN 5,000 UNIT/1 ML VIAL SUBCUT SCH ×3 (01:32→17:14)
[2020-04-24] MEDS: PHENYTOIN 100 MG/2 ML VIAL IV SCH ×3 (05:37→20:36)
[2020-04-24] MEDS: CYANOCOBALAMIN 500 MCG TABLET PO SCH (09:00)
[2020-04-24] MEDS: ASPIRIN EC 81 MG TABLET PO SCH (09:00)
[2020-04-24] MEDS: FLUoxetine 10 MG CAPSULE PO SCH (09:00)
[2020-04-24] MEDS: PANTOPRAZOLE 40 MG VIAL IV SCH (09:02)
[2020-04-24] MEDS: metOLazone 5 MG TABLET PO SCH (09:02)
[2020-04-24] MEDS: cefTRIAXone 1,000 MG in SYRINGE 1 EACH IV SCH (09:02)
[2020-04-24] MEDS: NICOTINE 21 MG/24 HR PATCH TRANSDERM SCH (09:03)
[2020-04-24 10:14] LABS: Basophils # 0.2 10*3/uL (0.0-0.2); Basophils % 0.9 % (0.0-0.8); Eosinophils # 0.2 10*3/uL (0.0-0.87); Hematocrit 29.7 VOL% (35.7-47.0); Hemoglobin 8.6 GM/DL (12.0-16.0); Immature Granulocytes % 7.2 %; Immature Granulocytes Absolute 1.23 #; Lymphocytes # 2.1 10*3/uL (1.4-4.0); Lymphocytes % 12.2 % (21.3-54.2); Mean Corpuscular Volume 78.2 FL (87-102); Mean Platelet Volume 10.2 FL (9.6-12.0); Monocytes % 3.9 % (1.7-12.7); NRBC # 0.05 10*3/uL; Neutrophils % 74.8 % (38.7-73.9); Platelet Count 358 T/CUMM (130-400); Red Cell Distribution Width 24.8 % (9.3-17.3); White Blood Count 17.1 T/CUMM (4-12)
[2020-04-24 10:35] LABS: Band Neutrophils 6 % (0-10); Lymphocytes 8 % (20-55); Segmented Neutrophils 83 % (50-85); Total Cells Counted 100
[2020-04-24 10:36] LABS: Hypochromasia 1+; Microcytosis 1+
[2020-04-24 10:37] LABS: Anisocytosis 1+; Polychromasia Slight
[2020-04-24 10:48] LABS: Calcium 8.8 MG/DL (8.5-10.1); Osmolality,Calculated 286.8 MOS/KG (273-304)
[2020-04-24] MEDS: cloNIDine 0.1 MG TABLET PO SCH ×2 (10:48→20:36)
[2020-04-24] MEDS: ISOSORBIDE MONONITRATE 60 MG TABLET PO SCH (10:49)
[2020-04-24] MEDS: ACETAMINOPHEN 325 MG TABLET PO PRN ×2 (16:57→20:37)
[2020-04-24] MEDS: INSULIN GLARGINE 100 UNIT/ML SUBCUT SCH (20:35)
[2020-04-24] MEDS: MIRTAZAPINE 15 MG TABLET PO SCH (20:36)
[2020-04-24] MEDS: ATORVASTATIN 10 MG TABLET PO SCH (20:37)
[2020-04-25] MEDS: HEPARIN 5,000 UNIT/1 ML VIAL SUBCUT SCH ×3 (00:01→16:36)
[2020-04-25] MEDS: INSULIN LISPRO 100 UNIT/ML SUBCUT SCH ×4 (00:01→17:49)
[2020-04-25 04:39] LABS: Calcium 8.5 MG/DL (8.5-10.1)
[2020-04-25] MEDS: PHENYTOIN 100 MG/2 ML VIAL IV SCH ×3 (05:37→20:31)
[2020-04-25] MEDS: ASPIRIN EC 81 MG TABLET PO SCH (09:13)
[2020-04-25] MEDS: ISOSORBIDE MONONITRATE 60 MG TABLET PO SCH (09:13)
[2020-04-25] MEDS: cloNIDine 0.1 MG TABLET PO SCH ×2 (09:13→20:31)
[2020-04-25] MEDS: CYANOCOBALAMIN 500 MCG TABLET PO SCH (09:15)
[2020-04-25] MEDS: PANTOPRAZOLE 40 MG VIAL IV SCH (09:16)
[2020-04-25] MEDS: FLUoxetine 10 MG CAPSULE PO SCH (09:17)
[2020-04-25] MEDS: NICOTINE 21 MG/24 HR PATCH TRANSDERM SCH (09:19)
[2020-04-25] MEDS: metOLazone 5 MG TABLET PO SCH (09:29)
[2020-04-25 10:09] LABS: Basophils # 0.2 10*3/uL (0.0-0.2); Basophils % 0.8 % (0.0-0.8); Eosinophils # 0.2 10*3/uL (0.0-0.87); Eosinophils % 0.8 % (0.00-10.9); Hematocrit 27.5 VOL% (35.7-47.0); Hemoglobin 7.9 GM/DL (12.0-16.0); Immature Granulocytes % 5.1 %; Immature Granulocytes Absolute 1.14 #; Lymphocytes # 1.7 10*3/uL (1.4-4.0); Lymphocytes % 7.4 % (21.3-54.2); Mean Corpuscular HGB Conc 28.7 GM/DL (32-36); Mean Platelet Volume 10.9 FL (9.6-12.0); Monocytes % 8.7 % (1.7-12.7); NRBC # 0.16 10*3/uL; Neutrophils % 77.2 % (38.7-73.9); Platelet Count 385 T/CUMM (130-400); Red Blood Count 3.48 MC/CUMM (3.8-5.5); Red Cell Distribution Width 24.8 % (9.3-17.3); White Blood Count 22.6 T/CUMM (4-12)
[2020-04-25 10:29] LABS: Hypochromasia 2+; Lymphocytes 8 % (20-55); Metamyelocytes 1 %; Microcytosis 1+; Nucleated Red Blood Cells 1 (0-5); Segmented Neutrophils 80 % (50-85); Total Cells Counted 100
[2020-04-25 10:30] LABS: Anisocytosis 1+; Ovalocytes Slight; Platelet Estimate Normal; Polychromasia Slight
[2020-04-25] MEDS ORDERED: POTASSIUM CHLORIDE 20 MEQ TABLET PO ONE (12:00)
[2020-04-25] MEDS: PIPERACILLIN/TAZOBACTAM 3,375 MG in SODIUM CHLORIDE 0.9% 100 ML IV SCH ×2 (12:07→23:39)
[2020-04-25] MEDS: INSULIN GLARGINE 100 UNIT/ML SUBCUT SCH (20:31)
[2020-04-25] MEDS: ATORVASTATIN 10 MG TABLET PO SCH (20:32)
[2020-04-25] MEDS: ACETAMINOPHEN 325 MG TABLET PO PRN (20:32)
[2020-04-25] MEDS: MIRTAZAPINE 15 MG TABLET PO SCH (20:32)
[2020-04-26] MEDS: HEPARIN 5,000 UNIT/1 ML VIAL SUBCUT SCH ×3 (00:01→16:11)
[2020-04-26] MEDS: INSULIN LISPRO 100 UNIT/ML SUBCUT SCH ×3 (00:56→11:18)
[2020-04-26] MEDS: PHENYTOIN 100 MG/2 ML VIAL IV SCH ×3 (04:09→22:05)
[2020-04-26 05:08] LABS: Basophils # 0.2 10*3/uL (0.0-0.2); Basophils % 0.8 % (0.0-0.8); Eosinophils # 0.2 10*3/uL (0.0-0.87); Eosinophils % 1.1 % (0.00-10.9); Hematocrit 26.8 VOL% (35.7-47.0); Hemoglobin 7.8 GM/DL (12.0-16.0); Immature Granulocytes % 4.6 %; Immature Granulocytes Absolute 0.88 #; Lymphocytes # 1.6 10*3/uL (1.4-4.0); Lymphocytes % 8.1 % (21.3-54.2); Mean Corpuscular HGB Conc 29.1 GM/DL (32-36); Mean Corpuscular Volume 77.9 FL (87-102); Mean Platelet Volume 10.9 FL (9.6-12.0); Monocytes % 8.2 % (1.7-12.7); NRBC # 0.18 10*3/uL; Neutrophils % 77.2 % (38.7-73.9); Platelet Count 413 T/CUMM (130-400); Red Blood Count 3.44 MC/CUMM (3.8-5.5); White Blood Count 19.1 T/CUMM (4-12)
[2020-04-26 08:17] LABS: Band Neutrophils 1 % (0-10); Eosinophils 1 % (0-10); Lymphocytes 16 % (20-55); Metamyelocytes 1 %; Segmented Neutrophils 73 % (50-85); Total Cells Counted 100
[2020-04-26 08:18] LABS: Hypochromasia 2+; Platelet Estimate Increased
[2020-04-26 08:19] LABS: Anisocytosis 1+; Ovalocytes 2+; Target Cells 2+
[2020-04-26 08:20] LABS: Macrocytosis 1+
[2020-04-26] MEDS: NICOTINE 21 MG/24 HR PATCH TRANSDERM SCH (08:21)
[2020-04-26] MEDS: CYANOCOBALAMIN 500 MCG TABLET PO SCH (08:23)
[2020-04-26] MEDS: PANTOPRAZOLE 40 MG VIAL IV SCH (08:23)
[2020-04-26] MEDS: cloNIDine 0.1 MG TABLET PO SCH (08:23)
[2020-04-26] MEDS: metOLazone 5 MG TABLET PO SCH (08:23)
[2020-04-26] MEDS: ASPIRIN EC 81 MG TABLET PO SCH (08:23)
[2020-04-26] MEDS: ISOSORBIDE MONONITRATE 60 MG TABLET PO SCH (08:23)
[2020-04-26] MEDS: FLUoxetine 10 MG CAPSULE PO SCH (08:23)
[2020-04-26] MEDS: PIPERACILLIN/TAZOBACTAM 3,375 MG in SODIUM CHLORIDE 0.9% 100 ML IV SCH ×2 (09:08→22:31)
[2020-04-26] MEDS ORDERED: NOREPINEPHRINE 4 MG/4 ML VIAL IV ONE (12:15)
[2020-04-26] MEDS: NOREPINEPHRINE 8 MG in SODIUM CHLORIDE 0.9% 242 ML IV PRN ×2 (12:20→16:14)
[2020-04-26 12:33] LABS: Allen Test Positive; Pt O2 Delivery Device Ventilator
[2020-04-26 12:34] LABS: ABG HCO3 10.7 MMOL/L (20-26); ABG Oxygen Saturation 99.3 % (95-100); ABG PCO2 41.7 MM HG (35-48); ABG TCO2 11.4 MMOL/L (23-27)
[2020-04-26 12:37] LABS: ABG PH 7.045 (7.35-7.45)
[2020-04-26] MEDS ORDERED: SODIUM BICARBONATE 50 MEQ/50 ML VIAL IV ONE ×4 (12:46→20:33)
[2020-04-26 13:07] LABS: Alanine Aminotransferase 570 U/L (13-56); Albumin 1.4 G/DL (3.4-5.0); Alkaline Phosphatase 150 U/L (45-117); Aspartate Amino Transferase 1393 U/L (0-37); Bilirubin,Total < 0.39 MG/DL (0.2-1.0); Blood Urea Nitrogen 58 MG/DL (7-18); Calcium 9.6 MG/DL (8.5-10.1); Estimated Glom Filtration Rate 6 ML/MIN; Glucose 139 MG/DL (74-106); Osmolality,Calculated 300.1 MOS/KG (273-304); Total Protein 6.5 G/DL (6.4-8.3)
[2020-04-26] MEDS ORDERED: MIDAZOLAM 2 MG/2 ML VIAL IV ONE (13:20)
[2020-04-26] MEDS ORDERED: MIDAZOLAM 2 MG/2 ML VIAL ONE (13:21)
[2020-04-26] MEDS ORDERED: fentaNYL INJ 1,250 MCG in SODIUM CHLORIDE 0.9% 225 ML IV PRN (13:30)
[2020-04-26 13:54] LABS: Basophils # 0.1 10*3/uL (0.0-0.2); Basophils % 0.3 % (0.0-0.8); Hemoglobin 8.7 GM/DL (12.0-16.0); Mean Corpuscular HGB Conc 27.4 GM/DL (32-36); NRBC # 0.81 10*3/uL
[2020-04-26 14:14] LABS: Hematocrit 31.7 VOL% (35.7-47.0); Immature Granulocytes % 9.6 %; Immature Granulocytes Absolute 4.54 #; Lymphocytes # 2.4 10*3/uL (1.4-4.0); Mean Corpuscular Volume 84.5 FL (87-102); Mean Platelet Volume 9.7 FL (9.6-12.0); Monocytes % 3.4 % (1.7-12.7); Neutrophils % 81.7 % (38.7-73.9); Platelet Count 347 T/CUMM (130-400); Red Blood Count 3.75 MC/CUMM (3.8-5.5); Red Cell Distribution Width 25.9 % (9.3-17.3)
[2020-04-26 14:19] LABS: White Blood Count 47.1 T/CUMM (4-12)
[2020-04-26] MEDS: SODIUM BICARB INJ 150 MEQ in DEXTROSE 5% 850 ML IV SCH ×2 (14:24→22:00)
[2020-04-26] MEDS ORDERED: ROCURONIUM 100 MG/10 ML VIAL IV ONE ×2 (14:35→16:33)
[2020-04-26 14:43] LABS: Band Neutrophils 8 % (0-10); Lymphocytes 7 % (20-55); Metamyelocytes 2 %; Myelocytes 2 %; Nucleated Red Blood Cells 2 (0-5); Segmented Neutrophils 76 % (50-85); Total Cells Counted 100
[2020-04-26 14:44] LABS: Anisocytosis 2+; Hypochromasia 3+; Polychromasia 1+
[2020-04-26 14:45] LABS: Burr Cells Few; Microcytosis 2+; Ovalocytes Few
[2020-04-26 14:46] LABS: Platelet Estimate Increased
[2020-04-26 14:57] LABS: ABG Base Excess -19.6 MMOL/L (-2.5-2.5); ABG HCO3 9.8 MMOL/L (20-26); ABG Oxygen Saturation 98.4 % (95-100); ABG PCO2 21.8 MM HG (35-48); ABG TCO2 7.6 MMOL/L (23-27); Allen Test Positive; Pt O2 Delivery Device Ventilator
[2020-04-26 15:04] LABS: ABG PH 7.164 (7.35-7.45)
[2020-04-26] MEDS ORDERED: VASOPRESSIN 100 UNITS in SODIUM CHLORIDE 0.9% 95 ML IV PRN (15:33)
[2020-04-26] MEDS ORDERED: MAGNESIUM SULF RIDER 1 GM in PREMIX 1 EACH IV PRN (16:46)
[2020-04-26] MEDS ORDERED: POTASSIUM CHLORIDE RIDER 100 ML IV PRN (16:46)
[2020-04-26] MEDS: CISATRACURIUM 200 MG in SODIUM CHLORIDE 0.9% 180 ML IV PRN (17:26)
[2020-04-26 18:20] LABS: ABG Base Excess -21.1 MMOL/L (-2.5-2.5); ABG Oxygen Saturation 98.1 % (95-100); ABG PCO2 26.4 MM HG (35-48); ABG TCO2 7.6 MMOL/L (23-27)
[2020-04-26 18:21] LABS: ABG PH 7.078 (7.35-7.45)
[2020-04-26 18:32] LABS: INR 1.5; PT Patient Result 16.1 SECS (9.8-11.9); Partial Thromboplastin Time 53.6 SECS (23.9-33.8)
[2020-04-26 19:01] LABS: CKMB % 2.2 %
[2020-04-26 19:02] LABS: Troponin I 0.395 NG/ML (0.00-0.045)
[2020-04-26 19:11] LABS: Alanine Aminotransferase 894 U/L (13-56); Albumin 1.4 G/DL (3.4-5.0); Alkaline Phosphatase 140 U/L (45-117); Amylase 357 U/L (25-115); Aspartate Amino Transferase 2548 U/L (0-37); Bilirubin,Total < 0.39 MG/DL (0.2-1.0); Blood Urea Nitrogen 64 MG/DL (7-18); Calcium 8.2 MG/DL (8.5-10.1); Estimated Glom Filtration Rate 6 ML/MIN; Glucose 63 MG/DL (74-106); Osmolality,Calculated 298.1 MOS/KG (273-304); Total Protein 5.7 G/DL (6.4-8.3)
[2020-04-26] MEDS: INSULIN REGULAR 100 UNIT/ML SUBCUT SCH (20:06)
[2020-04-26] MEDS: fentaNYL INJ 2,500 MCG in SODIUM CHLORIDE 0.9% 75 ML IV PRN (21:40)
[2020-04-26] MEDS: MIRTAZAPINE 15 MG TABLET PO SCH (22:05)
[2020-04-26] MEDS: MINERAL OIL/PETROLATUM OPH OINT 3.5 GM TUBE BOTH EYES SCH (22:05)
[2020-04-26] MEDS: ATORVASTATIN 10 MG TABLET PO SCH (22:05)
[2020-04-26 22:07] LABS: ABG Base Excess -13.7 MMOL/L (-2.5-2.5); ABG HCO3 11.4 MMOL/L (20-26); ABG Oxygen Saturation 98.6 % (95-100); ABG PCO2 23.5 MM HG (35-48); ABG PH 7.303 (7.35-7.45); ABG PO2 189.4 MM HG (80-95); ABG TCO2 12.1 MMOL/L (23-27)
[2020-04-26] MEDS: INSULIN GLARGINE 100 UNIT/ML SUBCUT SCH (22:19)
[2020-04-26 23:34] LABS: Basophils % 0.1 % (0.0-0.8); Eosinophils # 3.3 10*3/uL (0.0-0.87); Eosinophils % 6.9 % (0.00-10.9); Hematocrit 22.4 VOL% (35.7-47.0); Immature Granulocytes % 5.5 %; Immature Granulocytes Absolute 2.58 #; Lymphocytes # 1.2 10*3/uL (1.4-4.0); Lymphocytes % 2.6 % (21.3-54.2); Mean Corpuscular HGB Conc 27.7 GM/DL (32-36); Mean Corpuscular Volume 85.5 FL (87-102); Mean Platelet Volume 10.9 FL (9.6-12.0); Monocytes % 2.9 % (1.7-12.7); NRBC # 0.71 10*3/uL; Platelet Count 280 T/CUMM (130-400); Red Blood Count 2.62 MC/CUMM (3.8-5.5); Red Cell Distribution Width 25.2 % (9.3-17.3)
[2020-04-26 23:40] LABS: White Blood Count 47.2 T/CUMM (4-12)
[2020-04-26 23:41] LABS: Hemoglobin 6.2 GM/DL (12.0-16.0)
[2020-04-26 23:54] LABS: INR 1.8; PT Patient Result 18.8 SECS (9.8-11.9); Partial Thromboplastin Time 49.5 SECS (23.9-33.8)
[2020-04-27 00:02] LABS: CKMB % 2.7 %
[2020-04-27 00:07] LABS: Troponin I 0.493 NG/ML (0.00-0.045)
[2020-04-27 00:09] LABS: Albumin 1.3 G/DL (3.4-5.0); Bilirubin,Total 0.4 MG/DL (0.2-1.0); Calcium 7.7 MG/DL (8.5-10.1); Osmolality,Calculated 311.7 MOS/KG (273-304); Total Protein 5.6 G/DL (6.4-8.3)
[2020-04-27] MEDS: HEPARIN 5,000 UNIT/1 ML VIAL SUBCUT SCH ×2 (02:43→10:03)
[2020-04-27] MEDS: INSULIN REGULAR 100 UNIT/ML SUBCUT SCH ×3 (02:44→15:03)
[2020-04-27] MEDS: SODIUM BICARB INJ 150 MEQ in DEXTROSE 5% 850 ML IV SCH ×3 (02:45→14:57)
[2020-04-27 03:07] LABS: Anisocytosis 1+; Band Neutrophils 2 % (0-10); Lymphocytes 3 % (20-55); Nucleated Red Blood Cells 3 (0-5); Segmented Neutrophils 92 % (50-85); Total Cells Counted 100
[2020-04-27 03:08] LABS: Acanthocytes 1+; Ovalocytes 1+; Platelet Estimate Normal; Polychromasia 1+
[2020-04-27 04:39] LABS: ABG Base Excess -13.7 MMOL/L (-2.5-2.5); ABG HCO3 13.6 MMOL/L (20-26); ABG Oxygen Saturation 99.1 % (95-100); ABG PCO2 25.6 MM HG (35-48); ABG PH 7.281 (7.35-7.45); ABG TCO2 11.7 MMOL/L (23-27); Basophils # 0.1 10*3/uL (0.0-0.2); Basophils % 0.3 % (0.0-0.8); Eosinophils # 2.9 10*3/uL (0.0-0.87); Eosinophils % 6.9 % (0.00-10.9); Hematocrit 21.2 VOL% (35.7-47.0); Immature Granulocytes % 3.5 %; Immature Granulocytes Absolute 1.51 #; Lymphocytes # 1.4 10*3/uL (1.4-4.0); Lymphocytes % 3.4 % (21.3-54.2); Mean Corpuscular HGB Conc 29.2 GM/DL (32-36); Mean Corpuscular Volume 84.1 FL (87-102); Mean Platelet Volume 10.1 FL (9.6-12.0); Monocytes % 3.9 % (1.7-12.7); NRBC # 0.65 10*3/uL; Platelet Count 215 T/CUMM (130-400); Red Blood Count 2.52 MC/CUMM (3.8-5.5); Red Cell Distribution Width 25.1 % (9.3-17.3)
[2020-04-27 04:42] LABS: White Blood Count 42.7 T/CUMM (4-12)
[2020-04-27 04:43] LABS: Hemoglobin 6.2 GM/DL (12.0-16.0)
[2020-04-27] MEDS: fentaNYL INJ 2,500 MCG in SODIUM CHLORIDE 0.9% 75 ML IV PRN ×2 (04:54→12:30)
[2020-04-27] MEDS: PHENYTOIN 100 MG/2 ML VIAL IV SCH ×3 (05:34→20:29)
[2020-04-27 06:05] LABS: Albumin 1.2 G/DL (3.4-5.0); Bilirubin,Total 0.8 MG/DL (0.2-1.0); Calcium 7.1 MG/DL (8.5-10.1); Osmolality,Calculated 315.8 MOS/KG (273-304); Total Protein 5.3 G/DL (6.4-8.3)
[2020-04-27 06:13] LABS: Acanthocytes 1+; Anisocytosis 1+; Band Neutrophils 6 % (0-10); Lymphocytes 1 % (20-55); Nucleated Red Blood Cells 1 (0-5); Platelet Estimate Normal; Polychromasia 1+; Segmented Neutrophils 93 % (50-85); Total Cells Counted 100
[2020-04-27 06:32] LABS: Basophils # 0.1 10*3/uL (0.0-0.2); Basophils % 0.2 % (0.0-0.8); Eosinophils # 0.1 10*3/uL (0.0-0.87); Eosinophils % 0.3 % (0.00-10.9); Hematocrit 23.4 VOL% (35.7-47.0); Hemoglobin 6.8 GM/DL (12.0-16.0); Immature Granulocytes % 3.5 %; Immature Granulocytes Absolute 1.41 #; Lymphocytes # 1.5 10*3/uL (1.4-4.0); Lymphocytes % 3.7 % (21.3-54.2); Mean Corpuscular HGB Conc 29.1 GM/DL (32-36); Mean Corpuscular Volume 86.3 FL (87-102); Monocytes % 3.6 % (1.7-12.7); NRBC # 0.59 10*3/uL; Neutrophils % 88.7 % (38.7-73.9); Platelet Count 231 T/CUMM (130-400); Red Blood Count 2.71 MC/CUMM (3.8-5.5); Red Cell Distribution Width 25.2 % (9.3-17.3)
[2020-04-27 06:37] LABS: White Blood Count 40.3 T/CUMM (4-12)
[2020-04-27 07:01] LABS: Band Neutrophils 9 % (0-10); Lymphocytes 9 % (20-55); Metamyelocytes 1 %; Platelet Estimate Normal; Segmented Neutrophils 81 % (50-85); Total Cells Counted 100
[2020-04-27 07:15] LABS: CKMB % 3.1 %
[2020-04-27 07:16] LABS: Troponin I 0.467 NG/ML (0.00-0.045)
[2020-04-27 07:25] LABS: Albumin 1.2 G/DL (3.4-5.0); Bilirubin,Total 0.4 MG/DL (0.2-1.0); Calcium 6.8 MG/DL (8.5-10.1); Total Protein 4.6 G/DL (6.4-8.3)
[2020-04-27 08:14] LABS: Partial Thromboplastin Time 53.3 SECS (23.9-33.8)
[2020-04-27] MEDS: FLUoxetine 10 MG CAPSULE PO SCH (08:57)
[2020-04-27] MEDS: PANTOPRAZOLE 40 MG VIAL IV SCH (08:57)
[2020-04-27] MEDS: CYANOCOBALAMIN 500 MCG TABLET PO SCH (08:57)
[2020-04-27] MEDS: MINERAL OIL/PETROLATUM OPH OINT 3.5 GM TUBE BOTH EYES SCH ×3 (08:58→20:30)
[2020-04-27] MEDS: NICOTINE 21 MG/24 HR PATCH TRANSDERM SCH (08:58)
[2020-04-27] MEDS: PIPERACILLIN/TAZOBACTAM 3,375 MG in SODIUM CHLORIDE 0.9% 100 ML IV SCH ×2 (08:59→20:52)
[2020-04-27] MEDS ORDERED: SODIUM CHLORIDE 23.4% CONC INJ 38.5 MEQ, SODIUM BICARB INJ 150 MEQ in STERILE WATER INJ... IV SCH (10:00)
[2020-04-27] MEDS: ASPIRIN CHEW 81 MG TABLET PO SCH (10:01)
[2020-04-27] MEDS: INSULIN REGULAR 100 UNIT/ML IV SCH ×4 (10:05→20:29)
[2020-04-27 10:13] LABS: Hematocrit 26.1 VOL% (35.7-47.0); Hemoglobin 8.2 GM/DL (12.0-16.0)
[2020-04-27 10:59] LABS: Basophils # 0.1 10*3/uL (0.0-0.2); Basophils % 0.2 % (0.0-0.8); Eosinophils # 0.3 10*3/uL (0.0-0.87); Eosinophils % 1.1 % (0.00-10.9); Hematocrit 25.8 VOL% (35.7-47.0); Hemoglobin 8.1 GM/DL (12.0-16.0); Immature Granulocytes % 1.6 %; Immature Granulocytes Absolute 0.45 #; Lymphocytes # 1.2 10*3/uL (1.4-4.0); Mean Corpuscular HGB Conc 31.4 GM/DL (32-36); Mean Corpuscular Volume 83.5 FL (87-102); Mean Platelet Volume 11.2 FL (9.6-12.0); NRBC # 0.58 10*3/uL; Neutrophils % 90.1 % (38.7-73.9); Platelet Count 208 T/CUMM (130-400); Red Blood Count 3.09 MC/CUMM (3.8-5.5); Red Cell Distribution Width 22.2 % (9.3-17.3); White Blood Count 28.5 T/CUMM (4-12)
[2020-04-27 11:33] LABS: INR 1.9; PT Patient Result 19.3 SECS (9.8-11.9); Partial Thromboplastin Time 44.2 SECS (23.9-33.8)
[2020-04-27 11:40] LABS: Albumin 1.1 G/DL (3.4-5.0); Bilirubin,Total 0.5 MG/DL (0.2-1.0); Calcium 6.5 MG/DL (8.5-10.1); Osmolality,Calculated 320.3 MOS/KG (273-304); Total Protein 4.9 G/DL (6.4-8.3)
[2020-04-27 11:40] LABS: Anisocytosis 2+; Band Neutrophils 37 % (0-10); Lymphocytes 1 % (20-55); Metamyelocytes 5 %; Nucleated Red Blood Cells 1 (0-5); Poikilocytosis 1+; Segmented Neutrophils 57 % (50-85); Smudge Cells 2+; Total Cells Counted 100
[2020-04-27 11:41] LABS: Polychromasia 1+; Tear Drop Cells Few
[2020-04-27 11:41] LABS: CKMB % 3.3 %; Troponin I 0.424 NG/ML (0.00-0.045)
[2020-04-27] MEDS: CISATRACURIUM 200 MG in SODIUM CHLORIDE 0.9% 180 ML IV PRN (14:05)
[2020-04-27] MEDS: NOREPINEPHRINE 16 MG in SODIUM CHLORIDE 0.9% 234 ML IV PRN (15:15)
[2020-04-27 18:13] LABS: Basophils # 0.1 10*3/uL (0.0-0.2); Basophils % 0.3 % (0.0-0.8); Hemoglobin 9.2 GM/DL (12.0-16.0); Immature Granulocytes % 2.1 %; Lymphocytes # 0.6 10*3/uL (1.4-4.0); Lymphocytes % 2.6 % (21.3-54.2); Mean Corpuscular HGB Conc 32.9 GM/DL (32-36); Mean Corpuscular Volume 80.2 FL (87-102); Mean Platelet Volume 10.4 FL (9.6-12.0); Monocytes % 3.2 % (1.7-12.7); NRBC # 0.93 10*3/uL; Neutrophils % 91.8 % (38.7-73.9); Platelet Count 198 T/CUMM (130-400); Red Blood Count 3.49 MC/CUMM (3.8-5.5); Red Cell Distribution Width 22.2 % (9.3-17.3); White Blood Count 24.2 T/CUMM (4-12)
[2020-04-27 18:41] LABS: INR 1.8; PT Patient Result 18.9 SECS (9.8-11.9)
[2020-04-27 18:48] LABS: Partial Thromboplastin Time 29.3 SECS (23.9-33.8)
[2020-04-27 19:19] LABS: Band Neutrophils 21 % (0-10); Lymphocytes 1 % (20-55); Metamyelocytes 3 %; Myelocytes 1 %; Nucleated Red Blood Cells 7 (0-5); Segmented Neutrophils 73 % (50-85); Total Cells Counted 100
[2020-04-27 19:20] LABS: Microcytosis 1+; Polychromasia Slight
[2020-04-27 19:22] LABS: Platelet Estimate Adequate
[2020-04-27 19:27] LABS: Albumin 1.2 G/DL (3.4-5.0); Bilirubin,Total 0.7 MG/DL (0.2-1.0); Calcium 6.5 MG/DL (8.5-10.1); Osmolality,Calculated 297.4 MOS/KG (273-304); Total Protein 5.4 G/DL (6.4-8.3)
[2020-04-27] MEDS: INSULIN GLARGINE 100 UNIT/ML SUBCUT SCH (20:29)
[2020-04-27] MEDS: ATORVASTATIN 10 MG TABLET PO SCH (20:29)
[2020-04-27 23:23] LABS: Basophils # 0.1 10*3/uL (0.0-0.2); Basophils % 0.4 % (0.0-0.8); Hematocrit 27.4 VOL% (35.7-47.0); Hemoglobin 9.2 GM/DL (12.0-16.0); Immature Granulocytes % 2.6 %; Immature Granulocytes Absolute 0.56 #; Lymphocytes # 0.6 10*3/uL (1.4-4.0); Lymphocytes % 2.9 % (21.3-54.2); Mean Corpuscular HGB Conc 33.6 GM/DL (32-36); Mean Corpuscular Volume 81.8 FL (87-102); Mean Platelet Volume 9.4 FL (9.6-12.0); Monocytes % 3.1 % (1.7-12.7); NRBC # 1.33 10*3/uL; Platelet Count 173 T/CUMM (130-400); Red Blood Count 3.35 MC/CUMM (3.8-5.5); Red Cell Distribution Width 22.5 % (9.3-17.3); White Blood Count 21.8 T/CUMM (4-12)
[2020-04-27 23:47] LABS: INR 1.8; PT Patient Result 18.7 SECS (9.8-11.9)
[2020-04-27 23:54] LABS: Partial Thromboplastin Time 25.9 SECS (23.9-33.8)
[2020-04-28 00:31] LABS: Albumin 1.2 G/DL (3.4-5.0); Bilirubin,Total 0.7 MG/DL (0.2-1.0); Osmolality,Calculated 299.3 MOS/KG (273-304); Total Protein 5.3 G/DL (6.4-8.3)
[2020-04-28] MEDS: fentaNYL INJ 2,500 MCG in SODIUM CHLORIDE 0.9% 75 ML IV PRN (01:45)
[2020-04-28] MEDS: INSULIN REGULAR 100 UNIT/ML IV SCH ×2 (01:48→04:37)
[2020-04-28] MEDS: CISATRACURIUM 200 MG in SODIUM CHLORIDE 0.9% 180 ML IV PRN (02:41)
[2020-04-28 04:20] LABS: ABG Base Excess -1.3 MMOL/L (-2.5-2.5); ABG HCO3 23.3 MMOL/L (20-26); ABG Oxygen Saturation 98.3 % (95-100); ABG PCO2 28.9 MM HG (35-48); ABG PH 7.478 (7.35-7.45); ABG TCO2 19.6 MMOL/L (23-27)
[2020-04-28] MEDS: PHENYTOIN 100 MG/2 ML VIAL IV SCH ×3 (04:32→21:37)
[2020-04-28 04:34] LABS: Band Neutrophils 14 % (0-10); Metamyelocytes 2 %; Nucleated Red Blood Cells 17 (0-5); Platelet Estimate Normal; Segmented Neutrophils 81 % (50-85); Total Cells Counted 100
[2020-04-28 04:35] LABS: Anisocytosis 2+; Microcytosis 1+; Smudge Cells 2+
[2020-04-28 04:36] LABS: Hypochromasia 1+; Polychromasia Few; Target Cells Slight
[2020-04-28 05:30] LABS: Basophils # 0.1 10*3/uL (0.0-0.2); Basophils % 0.3 % (0.0-0.8); Eosinophils % 0.1 % (0.00-10.9); Hematocrit 28.5 VOL% (35.7-47.0); Hemoglobin 9.4 GM/DL (12.0-16.0); Immature Granulocytes % 4.2 %; Immature Granulocytes Absolute 0.87 #; Lymphocytes # 0.8 10*3/uL (1.4-4.0); Lymphocytes % 3.7 % (21.3-54.2); Mean Corpuscular Volume 82.6 FL (87-102); Mean Platelet Volume 10.2 FL (9.6-12.0); NRBC # 2.03 10*3/uL; Neutrophils % 88.7 % (38.7-73.9); Platelet Count 201 T/CUMM (130-400); Red Blood Count 3.45 MC/CUMM (3.8-5.5); Red Cell Distribution Width 22.8 % (9.3-17.3); White Blood Count 20.9 T/CUMM (4-12)
[2020-04-28 06:27] LABS: Band Neutrophils 54 % (0-10); Lymphocytes 3 % (20-55); Metamyelocytes 9 %; Myelocytes 1 %; Nucleated Red Blood Cells 15 (0-5); Platelet Estimate Normal; Total Cells Counted 100
[2020-04-28 06:28] LABS: Anisocytosis 2+; Poikilocytosis 1+; Polychromasia Slight; Smudge Cells 2+
[2020-04-28 06:29] LABS: Basophilic Stippling Slight; Segmented Neutrophils 32 % (50-85)
[2020-04-28 06:39] LABS: INR 1.7
[2020-04-28 06:46] LABS: Partial Thromboplastin Time < 20.0 SECS (23.9-33.8)
[2020-04-28 07:52] LABS: Albumin 1.2 G/DL (3.4-5.0); Bilirubin,Total 1.2 MG/DL (0.2-1.0); Calcium 5.9 MG/DL (8.5-10.1); Osmolality,Calculated 293.5 MOS/KG (273-304); Total Protein 5.2 G/DL (6.4-8.3)
[2020-04-28] MEDS: PANTOPRAZOLE 40 MG VIAL IV SCH (08:16)
[2020-04-28] MEDS: FLUoxetine 10 MG CAPSULE PO SCH (08:16)
[2020-04-28] MEDS: PIPERACILLIN/TAZOBACTAM 3,375 MG in SODIUM CHLORIDE 0.9% 100 ML IV SCH ×2 (08:17→21:37)
[2020-04-28] MEDS: CYANOCOBALAMIN 500 MCG TABLET PO SCH (08:17)
[2020-04-28] MEDS: ASPIRIN CHEW 81 MG TABLET PO SCH (08:17)
[2020-04-28] MEDS: NICOTINE 21 MG/24 HR PATCH TRANSDERM SCH (08:18)
[2020-04-28] MEDS: MINERAL OIL/PETROLATUM OPH OINT 3.5 GM TUBE BOTH EYES SCH ×3 (08:18→21:05)
[2020-04-28 08:43] LABS: ABG Base Excess -2.7 MMOL/L (-2.5-2.5); ABG HCO3 22.1 MMOL/L (20-26); ABG Oxygen Saturation 97.4 % (95-100); ABG PCO2 34.2 MM HG (35-48); ABG PH 7.404 (7.35-7.45); ABG TCO2 19.2 MMOL/L (23-27)
[2020-04-28 08:51] LABS: Basophils # 0.1 10*3/uL (0.0-0.2); Basophils % 0.4 % (0.0-0.8); Eosinophils % 0.1 % (0.00-10.9); Hematocrit 28.9 VOL% (35.7-47.0); Hemoglobin 9.3 GM/DL (12.0-16.0); Immature Granulocytes % 5.6 %; Lymphocytes # 0.7 10*3/uL (1.4-4.0); Lymphocytes % 3.3 % (21.3-54.2); Mean Corpuscular HGB Conc 32.2 GM/DL (32-36); Mean Corpuscular Volume 83.3 FL (87-102); Mean Platelet Volume 10.7 FL (9.6-12.0); Monocytes % 3.7 % (1.7-12.7); NRBC # 2.48 10*3/uL; Neutrophils % 86.9 % (38.7-73.9); Platelet Count 198 T/CUMM (130-400); Red Blood Count 3.47 MC/CUMM (3.8-5.5); White Blood Count 21.5 T/CUMM (4-12)
[2020-04-28 09:21] LABS: Band Neutrophils 55 % (0-10); Lymphocytes 1 % (20-55); Metamyelocytes 10 %; Myelocytes 2 %; Nucleated Red Blood Cells 17 (0-5); Platelet Estimate Normal; Segmented Neutrophils 30 % (50-85); Total Cells Counted 100
[2020-04-28 09:22] LABS: Anisocytosis 2+; Basophilic Stippling Slight; Polychromasia Slight; Smudge Cells 1+
[2020-04-28 09:24] LABS: Poikilocytosis 1+
[2020-04-28] MEDS ORDERED: CALCIUM GLUCONATE 1,000 MG/10 ML VIAL IV ONE (09:25)
[2020-04-28 09:30] LABS: INR 1.7; PT Patient Result 17.7 SECS (9.8-11.9)
[2020-04-28 09:44] LABS: Albumin 1.2 G/DL (3.4-5.0); Bilirubin,Total 0.9 MG/DL (0.2-1.0); CKMB % 3.4 %; Osmolality,Calculated 291.7 MOS/KG (273-304); Total Protein 5.2 G/DL (6.4-8.3)
[2020-04-28 09:46] LABS: Calcium 5.7 MG/DL (8.5-10.1); Partial Thromboplastin Time < 20.0 SECS (23.9-33.8); Troponin I 0.368 NG/ML (0.00-0.045)
[2020-04-28] MEDS ORDERED: CALCIUM GLUCONATE 2,000 MG in SODIUM CHLORIDE 0.9% 100 ML IV ONE (10:00)
[2020-04-28] MEDS: INSULIN REGULAR 100 UNIT/ML SUBCUT SCH ×4 (10:20→19:58)
[2020-04-28] MEDS ORDERED: VANCOMYCIN INJ 1,250 MG in SODIUM CHLORIDE 0.9% 250 ML IV ONE (17:00)
[2020-04-28] MEDS ORDERED: LORazepam 2 MG/1 ML VIAL ONE ×2 (19:23→21:02)
[2020-04-28] MEDS: LORazepam 2 MG/1 ML VIAL IV PRN ×2 (19:28→23:30)
[2020-04-28] MEDS: ATORVASTATIN 10 MG TABLET PO SCH (20:30)
[2020-04-28] MEDS: CALCIUM GLUCONATE 2,000 MG in SODIUM CHLORIDE 0.9% 100 ML IV SCH (20:40)
[2020-04-28] MEDS: INSULIN GLARGINE 100 UNIT/ML SUBCUT SCH (21:05)
[2020-04-28 21:31] VITALS: BP 110/37
[2020-04-28] MEDS ORDERED: FOSPHENYTOIN 1,000 MG.PE in SODIUM CHLORIDE 0.9% 250 ML IV ONE (22:00)
[2020-04-29] MEDS: ACETAMINOPHEN 325 MG TABLET PO PRN ×2 (00:45→04:30)
[2020-04-29] MEDS: INSULIN REGULAR 100 UNIT/ML SUBCUT SCH ×6 (01:05→20:11)
[2020-04-29 04:37] LABS: ABG HCO3 15.4 MMOL/L (20-26); ABG Oxygen Saturation 96.8 % (95-100); ABG PH 7.358 (7.35-7.45); ABG PO2 104.5 MM HG (80-95); ABG TCO2 16.3 MMOL/L (23-27)
[2020-04-29 04:45] LABS: Basophils # 0.2 10*3/uL (0.0-0.2); Basophils % 0.8 % (0.0-0.8); Hematocrit 29.6 VOL% (35.7-47.0); Hemoglobin 8.8 GM/DL (12.0-16.0); Immature Granulocytes % 7.9 %; Immature Granulocytes Absolute 1.69 #; Lymphocytes # 1.1 10*3/uL (1.4-4.0); Lymphocytes % 5.2 % (21.3-54.2); Mean Corpuscular HGB Conc 29.7 GM/DL (32-36); Mean Corpuscular Volume 86.3 FL (87-102); Monocytes % 4.1 % (1.7-12.7); NRBC # 4.16 10*3/uL; Platelet Count 189 T/CUMM (130-400); Red Blood Count 3.43 MC/CUMM (3.8-5.5); Red Cell Distribution Width 24.8 % (9.3-17.3); White Blood Count 21.4 T/CUMM (4-12)
[2020-04-29 05:09] LABS: Band Neutrophils 9 % (0-10); Bilirubin,Total 0.8 MG/DL (0.2-1.0); Calcium 5.9 MG/DL (8.5-10.1); Hypochromasia 1+; Lymphocytes 5 % (20-55); Macrocytosis Slight; Nucleated Red Blood Cells 23 (0-5); Osmolality,Calculated 294.5 MOS/KG (273-304); Platelet Estimate Adequate; Polychromasia Slight; Segmented Neutrophils 80 % (50-85); Total Cells Counted 100; Total Protein 5.3 G/DL (6.4-8.3)
[2020-04-29] MEDS: PHENYTOIN 100 MG/2 ML VIAL IV SCH ×3 (05:40→20:30)
[2020-04-29] MEDS: DEXTROSE 10% 250 ML BAG IV PRN ×7 (06:10→22:00)
[2020-04-29] MEDS: CYANOCOBALAMIN 500 MCG TABLET PO SCH (08:27)
[2020-04-29] MEDS: PANTOPRAZOLE 40 MG VIAL IV SCH (08:28)
[2020-04-29] MEDS: ASPIRIN CHEW 81 MG TABLET PO SCH (08:28)
[2020-04-29] MEDS: FLUoxetine 10 MG CAPSULE PO SCH (08:28)
[2020-04-29] MEDS: NICOTINE 21 MG/24 HR PATCH TRANSDERM SCH (08:30)
[2020-04-29] MEDS: CALCIUM GLUCONATE 2,000 MG in SODIUM CHLORIDE 0.9% 100 ML IV SCH ×2 (08:31→20:30)
[2020-04-29] MEDS: NOREPINEPHRINE 16 MG in SODIUM CHLORIDE 0.9% 234 ML IV PRN (08:34)
[2020-04-29] MEDS: MINERAL OIL/PETROLATUM OPH OINT 3.5 GM TUBE BOTH EYES SCH ×3 (09:52→20:30)
[2020-04-29] MEDS: PIPERACILLIN/TAZOBACTAM 3,375 MG in SODIUM CHLORIDE 0.9% 100 ML IV SCH ×2 (10:40→21:04)
[2020-04-29] MEDS ORDERED: VANCOMYCIN INJ 500 MG in SODIUM CHLORIDE 0.9% 100 ML IV PRN (12:04)
[2020-04-29] MEDS: HYDROCORTISONE 100 MG VIAL IV SCH ×2 (15:12→23:50)
[2020-04-29] MEDS ORDERED: DEXTROSE 50% 25 GM/50 ML VIAL IV ONE (15:30)
[2020-04-29] MEDS: ATORVASTATIN 10 MG TABLET PO SCH (20:30)
[2020-04-29] MEDS: INSULIN GLARGINE 100 UNIT/ML SUBCUT SCH (21:03)
[2020-04-29] MEDS ORDERED: DEXTROSE 10% 1,000 ML IV SCH (23:45)
[2020-04-30] MEDS: INSULIN REGULAR 100 UNIT/ML SUBCUT SCH (01:18)
== END 2020-04-30 02:03 | disposition expired | DRG 208 ==
LOC: EDUNIT# → EDBD → N.ED 13:39 → SUATTDRO 16:51 → N.EDINP 16:51 → N.2E 18:07 → N.CC 04-15 15:32 → N.2E 04-18 16:13 → N.CC 04-26 12:09
PROVIDERS: ADMIT Family Medicine; ATTEND Internal Medicine